=== PATIENT | female | born 1950 | race Caucasian/White ===

== ENCOUNTER → 2018-08-29 | Outpatient (CLI) | payer MEDICARE, OTHER ==
[~2018-08-29] MED LIST: ASPI-1471 PO; ATOR40TA69 PO; CALC500T6 PO; CHOL100052 PO; CHOL100058 PO; DIPH0.5D12 IM; ESOM40CA42 PO; GLUC100026 PO; IRBE1TAB10 PO; NAPR220C12 PO; NIAC500T84 PO; OMEP-218 PO; PNEU0.5D3 IM; UBID100C48 PO; VALE445C4 PO; VALE530C2 PO
--- NOTE | 2018-08-29 16:01 | RADIOLOGY IMAGING REPORT ---
FACILITY: [facility] - [place] PATIENT NAME: YARITZA HURST : [id number] MR: [id number] V: [id number] EXAM DATE: [id number] ORDERING PHYSICIAN: DORIAN STEPHENSON TECHNOLOGIST: Tiara Savage PROCEDURE:BILATERAL DIGITAL SCREENING MAMMOGRAM WITH CAD ASSISTED INTERPRETATION & 3D TOMOSYNTHESIS COMPARISON:Prior mammograms 08/26/17, 07/11/16, 07/22/14, 07/17/13, 06/02/12. INDICATIONS:SCREENING FINDINGS: A small amount of fibroglandular tissue is seen throughout the breasts. The parenchymal pattern has remained stable allowing for difference in mammographic technique & patient positioning. There is no evidence of malignant appearing mass, malignant appearing calcifications or other secondary sign of malignancy in either breast. DIAGNOSTIC CATEGORY 1--NEGATIVE. RECOMMENDATIONS: ROUTINE MAMMOGRAM AND CLINICAL EVALUATION. IMPRESSION: BIRADS 1: Negative. No significant abnormality is seen. Dictated by: Antonella Rendon M.D. on 08/29/2018 at 15:12 Transcribed by: QUEENIE on 08/29/2018 at 15:23 Approved by: Antonella Rendon M.D. on 08/29/2018 at 16:00 [facility]
== END ==
LOC: MAMO 03:23
PROVIDERS: ATTEND Emergency Medicine
DX: Z12.31 Encounter for screening mammogram for malignant neoplasm of breast (principal); Z80.3 Family history of malignant neoplasm of breast
CPT/HCPCS: 77063; 77067

== ENCOUNTER → 2019-06-01 | Outpatient (CLI) | payer MEDICARE, OTHER ==
[~2019-06-01] MED LIST changes: -DIPH0.5D12 IM; +DIPH0.5S2 IM
--- NOTE | 2019-06-01 08:48 | RADIOLOGY IMAGING REPORT ---
FACILITY: [facility] PATIENT NAME: Ema Araujo : 1950 MR: [id number] V: [id number] EXAM DATE: ORDERING PHYSICIAN: DORIAN STEPHENSON TECHNOLOGIST: Location: [facility] [place] Patient: Ema Araujo : 1950 Visit/Account:[id number] Date of Sevice: 06/01/2019 DEXA Scan Clinical history: Postmenopausal estrogen deficiency. Comparison: None. HIP: Bone mineral density (BMD) measured in the Left total hip region correlates with a Z-score -0.5 and a T-score of -1.9 which is osteopenia as defined by the World Health Organization. The correspondin g risk of fracture in the hip is 3-4 times compared with a young adult reference population. Bone mineral density (BMD) measured in the Femoral Neck region measures 0.764 g/cm2. FOREARM: The bone mineral density (BMD) measured in the ULTRADISTAL Left forearm, where trabecular bone predom inates, correlates with a Z-score -0.8 and a T-score of -2.7 which is osteoporosis as defined by the World Health Organization. The corresponding risk of fracture in the distal forearm is 6-8 times com pared with a young adult reference population. The bone mineral density (BMD) in the MIDSHAFT of the forearm, where cortical bone predominates, maurisio elates with a Z-score 0.2 and a T-score of -1.7 which is osteopenia as defined by the World Health Or ganization. The corresponding risk of fracture in the midshaft of the forearm is 3-4 times compared w ith a young adult reference population. IMPRESSION: 1. Left Hip: Osteopenia. 2. Femoral Neck: Bone Mineral Density is 0.764 g/cm2 3. Left Forearm: Osteoporosis. The next DEXA scan of this patient should include the following sites: Left hip and the left forearm. FRAX? WHO Fracture Risk Assessment Tool link: <http://www.shef.ac.uk/FRAX/tool.jsp?locationValue=9> PLEASE NOTE: 1) The World Health Organization defines low BMD as follows: T-score Normal > -1 Osteopenia < -1 and > -2.5 Osteoporosis < -2.5 without fractures Established osteoporosis < -2.5 with fractures 2) In general, you may wish to consider: Diagnosis Treatment Follow-up DEXA Normal BMD Prevention 2-3 years Osteopenia Prevention/therapy 1-2 years Osteoporosis Therapy Yearly 3) Fracture risk estimated from the T-score is more accurate for vertebral fractures (often spontane ous) than for hip fractures. Report Dictated By: Seymour Galo MD at 06/01/2019 8:38 AM Report E-Signed By: Seymour Galo MD at 06/01/2019 8:41 AM WSN:EVA
== END ==
LOC: RAD 00:45
PROVIDERS: ATTEND Emergency Medicine
DX: M85.88 Other specified disorders of bone density and structure, other site (principal)
CPT/HCPCS: 77080